=== PATIENT | female | born 1930 | race Caucasian/White ===

== ENCOUNTER 2018-02-15 21:27 | Inpatient (IN) | payer OTHER ==
[~2018-02-15] VITALS: Ht 165.1 cm; Wt 49.0 kg
[2018-02-15] MEDS ORDERED: SODIUM CHLORIDE 0.9% 1,000 ML IVB ONE (22:42)
[2018-02-15 23:48] LABS: Lymphocytes # (auto) 0.9 uL; Neutrophils # (auto) 9.7 uL; White Blood Cell 11.1 10^3/uL (4.4-10.8)
[2018-02-15 23:50] LABS: Basophils # (auto) 0.1 uL; Basophils % (auto) 0.5 % (0.0-2.0); Eosinophils # (auto) 0.1 uL; Eosinophils % (auto) 1.3 % (0.0-7.0); Hemoglobin 14.5 g/dL (12.2-16.2); Lymphocytes % (auto) 8.1 % (10.0-50.0); Mean Corpuscular Hemoglobin 32.3 pg (28.0-32.0); Mean Corpuscular Hgb Conc. 32.4 g/dL (32.0-36.0); Mean Corpuscular Volume 99.9 fL (80.0-100.0); Monocytes # (auto) 0.3 uL; Monocytes % (auto) 2.4 % (0.0-12.0); Neutrophils % (auto) 87.7 % (37.0-80.0); Nucleated Red Blood Cells % 1.1 %; Red Cell Distribution Width 18.2 % (11.8-14.3)
[2018-02-16] VITALS (37 sets, daily range): BP systolic 69–125; BP diastolic 43–81
[2018-02-16 00:04] LABS: Alanine Aminotransferase 470 U/L (13-56); Albumin 2.9 g/dL (3.4-5.0); Anion Gap 17 (5-15); Blood Alcohol < 3.0 mg/dL (0-5); Blood Urea Nitrogen 63 mg/dL (7-18); Calcium 7.1 mg/dL (8.5-10.1); Carbon Dioxide 17 mmol/L (21-32); Chloride 101 mmol/L (98-107); GFR African American 23 mL/min; GFR Non-African American 19 mL/min; Glucose 82 mg/dL (74-106); Sodium 135 mmol/L (136-145)
[2018-02-16 00:11] LABS: Partial Thromboplastin Time 53.9 sec (23.78-33.04); Prothrombin Time 52.2 sec (9.27-12.13)
[2018-02-16 00:11] LABS: Platelet Count (auto) 48 10^3/uL (140-450)
[2018-02-16 00:14] LABS: Alkaline Phosphatase 82 U/L (45-117); Aspartate Aminotransferase 1062 U/L (15-37); Bilirubin, Total 4.5 mg/dL (0.2-1.0); Total Protein 5.3 g/dL (6.4-8.2)
[2018-02-16 00:23] LABS: Creatine Kinase IFCC 2069 U/L (26-192)
[2018-02-16 00:24] LABS: Lactic Acid w/Reflex 6.6 mmol/L (0.4-2.0)
[2018-02-16 00:29] LABS: Potassium 5.7 mmol/L (3.5-5.1)
[2018-02-16 00:30] LABS: INR 5.37 (0.9-1.15)
[2018-02-16] MEDS ORDERED: InsuLIN REG 1unit/0.01ml Soln (100units/ml) IV ONE (00:45)
[2018-02-16] MEDS ORDERED: PIPERACILLIN-TAZOB 3.375GM 100 ML IV ONE (00:45)
[2018-02-16] MEDS ORDERED: HALOPERIDOL LACTATE 5 MG/ML INJ VIAL IM ONE (00:45)
[2018-02-16] MEDS: CALCIUM CHL 100MG/ML 1,000 MG in D5W 5% 100 ML IV ONE ×2 (00:45→01:38)
[2018-02-16] MEDS ORDERED: SODIUM BICARBONATE 8.4 % INJ 50ML VIAL IV ONE (00:45)
[2018-02-16] MEDS ORDERED: SODIUM CHLORIDE 0.9% 1,000 ML IV ONE ×3 (00:45→02:45)
[2018-02-16] MEDS ORDERED: DEXTROSE (50%) 50ML SYRG IV ONE ×2 (00:45→02:00)
[2018-02-16] MEDS ORDERED: CALCIUM GLUC 4.65meq/50ml D5AE 50 ML IV ONE (01:34)
[2018-02-16] MEDS ORDERED: MORPHINE SULFATE 4 MG/ML SYR/VIAL IV PRN (02:45)
[2018-02-16] MEDS ORDERED: SODIUM CHLORIDE 0.9% 1,000 ML IV SCH (02:45)
[2018-02-16] MEDS ORDERED: NITROGLYCERIN 0.4 MG SL TAB SL PRN (02:45)
[2018-02-16] MEDS ORDERED: ONDANSETRON HCL 4 MG/2 ML VIAL IV PRN (02:45)
[2018-02-16] MEDS ORDERED: PHYTONADIONE (VIT K)10 MG/ML 1ML VIAL SUBCUT ONE (02:45)
[2018-02-16] MEDS ORDERED: ALBUMIN 5% 250 ML IV ONE (04:45)
[2018-02-16 05:45] LABS: Urine Bacteria FEW /hpf (None Seen); Urine Blood 3+ /uL (Negative); Urine Hyaline Cast MOD /lpf (0 - 2); Urine Specific Gravity 1.018 (1.001-1.035); Urine WBC 10 /hpf (0 - 5)
[2018-02-16 05:47] LABS: Alcohol, Urine < 3.0 mg/dL (0-5); Amphetamine Screen, Urine NEGATIVE (NEGATIVE); Barbiturate Scree,Urine NEGATIVE (NEGATIVE); Benzodiazephine Screen, Urine NEGATIVE (NEGATIVE); Cannabinoid Screen, Urine NEGATIVE (NEGATIVE); Cocaine Screen, Urine NEGATIVE (NEGATIVE); Opiate Scree,Urine NEGATIVE (NEGATIVE); Phencyclidine Screen, Urine NEGATIVE (NEGATIVE)
[2018-02-16] MEDS ORDERED: VANCOMYCIN 1GM/250ML 250 ML IV ONE (06:00)
[2018-02-16] MEDS ORDERED: VANCOMYCIN PER PHARMACY 0 MG IV SCH ×2 (06:00→14:30)
[2018-02-16] MEDS ORDERED: NOREPINEPHRINE 8 MG/250ML KIT 250 ML IV ONE (06:05)
[2018-02-16] MEDS: PIPERACILLIN-TAZOB 2.25GM 50 ML IV SCH ×3 (06:14→17:50)
[2018-02-16] MEDS ORDERED: NOREPINEPHRINE 8 MG/250ML KIT 250 ML IV SCH (08:16)
[2018-02-16 08:36] LABS: Albumin 2.8 g/dL (3.4-5.0); Calcium 7.1 mg/dL (8.5-10.1); Potassium 5.1 mmol/L (3.5-5.1)
[2018-02-16 08:41] LABS: BUN/Creatinine Ratio 26.1; Bilirubin, Total 4.3 mg/dL (0.2-1.0); Total Protein 5.1 g/dL (6.4-8.2)
[2018-02-16] MEDS ORDERED: VANCOMYCIN 500 MG in D5W 5% 100 ML IV ONE (09:00)
[2018-02-16] MEDS ORDERED: ASPirin 81 mg TAB PO SCH (10:00)
[2018-02-16] MEDS ORDERED: ENOXAPARIN SOD 100 MG/1 ML SYRINGE SC SCH (10:00)
[2018-02-16] MEDS ORDERED: SODIUM BICARBONATE 50ML VIAL 50 ML in D5W/SOD CHL 0.45% 1,000 ML IV SCH ×2 (12:45→22:30)
[2018-02-16 13:54] LABS: Protein, Urine 67.9 mg/dL (0.0-11.9)
[2018-02-16] MEDS ORDERED: SODIUM CHLORIDE 0.9% 500 ML IV ONE (14:45)
[2018-02-16] MEDS ORDERED: PANTOPRAZOLE 40 MG/10 ML VIAL IV ONE (14:45)
[2018-02-16] MEDS: ALBUMIN 25% 100 ML IV SCH ×2 (14:45→22:54)
[2018-02-16 14:49] LABS: Hepatitis A Ab IgM Negative; Hepatitis B Core IgM Negative; Hepatitis B Surface Antigen Negative (Negative); Hepatitis C Antibody Negative (Negative)
[2018-02-16] MEDS: MORPHINE SULFATE 4 MG/ML SYR/VIAL IV PRN (15:20)
[2018-02-16] MEDS ORDERED: PPN PER PHARMACY 0 ML IV SCH (17:45)
[2018-02-16] MEDS ORDERED: DEXTROSE (50%) 50ML SYRG IV SCH (18:30)
[2018-02-16 20:14] LABS: Basophils # (auto) 0 uL; Basophils % (auto) 0.3 % (0.0-2.0); Eosinophils # (auto) 0 uL; Eosinophils % (auto) 0.1 % (0.0-7.0); Hematocrit 37.5 % (36.0-46.0); Hemoglobin 12.5 g/dL (12.2-16.2); Lymphocytes # (auto) 0.3 uL; Lymphocytes % (auto) 2.7 % (10.0-50.0); Mean Corpuscular Hemoglobin 33.1 pg (28.0-32.0); Mean Corpuscular Hgb Conc. 33.3 g/dL (32.0-36.0); Mean Corpuscular Volume 99.3 fL (80.0-100.0); Monocytes # (auto) 0.1 uL; Monocytes % (auto) 1.5 % (0.0-12.0); Neutrophils # (auto) 9.2 uL; Neutrophils % (auto) 95.4 % (37.0-80.0); Nucleated Red Blood Cells % 1.1 %; Platelet Count (auto) 75 10^3/uL (140-450); Red Blood Cells 3.78 10^6/uL (4.0-5.20); White Blood Cell 9.7 10^3/uL (4.4-10.8)
[2018-02-16 20:24] LABS: INR 3.13 (0.9-1.15); Partial Thromboplastin Time 53.1 sec (23.78-33.04); Prothrombin Time 31.4 sec (9.27-12.13)
[2018-02-16 20:26] LABS: Calcium 6.4 mg/dL (8.5-10.1); Potassium 4.2 mmol/L (3.5-5.1)
[2018-02-16 20:27] LABS: Magnesium 1.7 mg/dL (1.6-2.6); Phosphorus 5.2 mg/dL (2.5-4.90)
[2018-02-16 20:28] LABS: BUN/Creatinine Ratio 28.9
[2018-02-16 20:30] LABS: Bilirubin, Total 5.3 mg/dL (0.2-1.0)
[2018-02-16 20:31] LABS: Total Protein 4.9 g/dL (6.4-8.2)
[2018-02-16 21:15] LABS: Folate (Folic Acid) 7.78 ng/mL (5.38-24)
[2018-02-16] MEDS ORDERED: NYSTATIN-TRIAMCINOLONE TOPICAL CRE 15GM TOP SCH (22:00)
[2018-02-16] MEDS ORDERED: PANTOPRAZOLE 40 MG/10 ML VIAL IV SCH (22:00)
[2018-02-16] MEDS ORDERED: AMINO ACID INFUSION IN D10W 1,000 ML IV NR (22:30)
[2018-02-17] VITALS (11 sets, daily range): BP systolic 98–118; BP diastolic 46–87
[2018-02-17] MEDS ORDERED: InsuLIN REG 1unit/0.01ml Soln (100units/ml) SC SCH
[2018-02-17] MEDS ORDERED: ACCU-CHEK COMFORT CURVE STRIP VI SCH
[2018-02-17] MEDS: PIPERACILLIN-TAZOB 2.25GM 50 ML IV SCH (00:40)
[2018-02-17] MEDS: MORPHINE SULFATE 4 MG/ML SYR/VIAL IV PRN (01:54)
[2018-02-17 02:05] LABS: Hematocrit 36.8 % (36.0-46.0); Hemoglobin 12.1 g/dL (12.2-16.2); Mean Corpuscular Hemoglobin 32.5 pg (28.0-32.0); Mean Corpuscular Hgb Conc. 32.9 g/dL (32.0-36.0); Mean Corpuscular Volume 98.7 fL (80.0-100.0); Platelet Count (auto) 69 10^3/uL (140-450); Red Blood Cells 3.73 10^6/uL (4.0-5.20); Red Cell Distribution Width 18.2 % (11.8-14.3); White Blood Cell 9.1 10^3/uL (4.4-10.8)
[2018-02-17 02:07] LABS: Basophils % (manual) 0 (0.0-2.0); Blast Cells 0; Eosinophils % (manual) 0 (0-7); Metamyelocytes % 0; Myelocytes % 0; Promyelocytes % 0; Reactive Lymphocytes 0
[2018-02-17 02:18] LABS: INR 2.94 (0.9-1.15); Partial Thromboplastin Time 50.5 sec (23.78-33.04); Prothrombin Time 29.6 sec (9.27-12.13)
[2018-02-17 02:19] LABS: Band Neutrophils % (manual) 3; Lymphocytes % (manual) 3 (10.0-50.0); Monocytes % (manual) 2 (0-12)
[2018-02-17 02:21] LABS: Magnesium 1.8 mg/dL (1.6-2.6); Phosphorus 4.3 mg/dL (2.5-4.90)
[2018-02-17 02:25] LABS: Pre Albumin 6.6 mg/dL (20.0-40.0)
[2018-02-17] MEDS ORDERED: ENOXAPARIN SOD 60 MG/0.6 ML SYRINGE SC SCH (10:00)
== END 2018-02-17 02:56 | disposition short-term general hospital (02) | DRG 871 ==
LOC: ER 21:27 → EDBD 21:27 → TELE 21:28 → ICU WEST 02-16 16:15
PROVIDERS: ADMIT Nurse Practitioner; ATTEND Internal Medicine
PROC: 30233L1 Transfusion of Nonautologous Fresh Plasma into Peripheral Vein, Percutaneous Approach (ICD-10-PCS; principal; 2018-02-16)
PROC: 30233K1 Transfusion of Nonautologous Frozen Plasma into Peripheral Vein, Percutaneous Approach (ICD-10-PCS; 2018-02-16)
DX: A41.9 Sepsis, unspecified organism (principal); G93.41 Metabolic encephalopathy; R57.1 Hypovolemic shock; R65.21 Severe sepsis with septic shock; D65 Disseminated intravascular coagulation [defibrination syndrome]; I50.43 Acute on chronic combined systolic (congestive) and diastolic (congestive) heart failure; M31.1 Thrombotic microangiopathy; D59.3 Hemolytic-uremic syndrome; I21.4 Non-ST elevation (NSTEMI) myocardial infarction; J96.01 Acute respiratory failure with hypoxia; E43 Unspecified severe protein-calorie malnutrition; M62.82 Rhabdomyolysis; N17.9 Acute kidney failure, unspecified; E87.2 Acidosis; E87.1 Hypo-osmolality and hyponatremia; I13.0 Hypertensive heart and chronic kidney disease with heart failure and stage 1 through stage 4 chronic kidney disease, or unspecified chronic kidney disease; N39.0 Urinary tract infection, site not specified; R82.1 Myoglobinuria; D68.8 Other specified coagulation defects; I96 Gangrene, not elsewhere classified; Z68.1 Body mass index [BMI] 19.9 or less, adult; K72.90 Hepatic failure, unspecified without coma; E87.5 Hyperkalemia; N18.9 Chronic kidney disease, unspecified; R79.89 Other specified abnormal findings of blood chemistry; R31.9 Hematuria, unspecified; E78.00 Pure hypercholesterolemia, unspecified; E78.5 Hyperlipidemia, unspecified; F03.90 Unspecified dementia, unspecified severity, without behavioral disturbance, psychotic disturbance, mood disturbance, and anxiety; F17.200 Nicotine dependence, unspecified, uncomplicated; I25.10 Atherosclerotic heart disease of native coronary artery without angina pectoris; M75.122 Complete rotator cuff tear or rupture of left shoulder, not specified as traumatic; R29.6 Repeated falls; Z86.73 Personal history of transient ischemic attack (TIA), and cerebral infarction without residual deficits; Z95.0 Presence of cardiac pacemaker
CPT/HCPCS: 36415; 36600; 70450; 71045; 73020; 73070; 76700; 80053; 80074; 80202; 80307; 80320; 81001; 82040; 82140; 82550; 82570; 82607; 82746; 82805; 82962; 83036; 83605; 83615; 83735; 83874; 83880; 84100; 84156; 84300; 84443; 84478; 84484; 85007; 85025; 85027; 85045; 85362; 85379; 85384; 85610; 85730; 86850; 86900; 86901; 87040; 87081; 87086; 93005; 93306; 93970; 96361; 96365; 96375; 99291; C9113; G0378; J0610; J1815; J2543; J3430; J7060; P9047